=== PATIENT | male | born 1960 | race Caucasian/White ===

== ENCOUNTER 2021-09-20 19:32 | Emergency (ER) | payer MEDICAID ==
[~2021-09-20] VITALS: Ht 165.1 cm; Wt 80.0 kg
[~2021-09-20 19:32] MED LIST: CEPH-571 PO; NO HOME MEDS
[2021-09-20 19:47] VITALS: BP 106/67
[2021-09-20] MEDS ORDERED: morphine 4 MG/ML inj SYRINge IV ONE (20:00)
[2021-09-20] MEDS ORDERED: ondansetron/PF 4mg/2ml inj IV ONE (20:00)
[2021-09-20] MEDS ORDERED: ketorolac trometh. 30mg/ml inj. IV ONE (20:45)
[2021-09-20] MEDS ORDERED: HYDR-3965 PO (20:51)
== END 2021-09-20 21:06 | disposition home or self-care (01) ==
LOC: ER 19:33
DX: S00.81XA Abrasion of other part of head, initial encounter (principal); M25.521 Pain in right elbow; Z79.2 Long term (current) use of antibiotics; W19.XXXA Unspecified fall, initial encounter; Y93.89 Activity, other specified; Y92.89 Other specified places as the place of occurrence of the external cause; Y99.8 Other external cause status
CPT/HCPCS: 70450; 72125; 73070; 96374; 96375; 99285; J1885; J2270; J2405

== ENCOUNTER 2025-05-14 21:26 | Emergency (ER) | payer MEDICAID ==
[~2025-05-14] VITALS: Ht 162.6 cm; Wt 67.5 kg
[2025-05-14 21:38] VITALS: BP 136/94; PULSE 85; RESP 17; TEMP 97.8; O2SAT 96
[2025-05-14] MEDS ORDERED: OFLO5DRO5 LEFT EAR (21:54)
--- NOTE | 2025-05-14 21:55 | Physician Documentation ---
History of Present Illness ~ Chief Complaint: Ear Pain Stated Complaint: L EAR PAIN Time Seen by MD: 21:51 Source: patient Mode of Arrival: POV Exam Limitations: no limitations HPI 65-year-old male with complaints of left ear pain x2 days no fevers. Medication Reconciliation Allergies: Coded Allergies: No Known Allergies (Unverified , 10/28/12) Scheduled Cephalexin (Keflex), 1 CAP PO QID Miscellaneous Medications Home Med List (No Home Medications), (Reported) Past Medical History Past Medical History: No Pertinent History Alcohol Use: None Review of Systems All Other Systems at this time: Reviewed and Negative ENT: Reports: see HPI Physical Exam Vital Signs: RN Vital Signs have been reviewed: Yes, Temperature: 97.8, Source: Temporal, Heart Rate: 85, Respiratory Rate: 17, BP: 136/94, Pulse Oximetry: 96, Weight: 67.500 Oxygen Flow Rate: 0 General Appearance: alert, WD/WN, no apparent distress Ear: TM red, discharge, swelling, tenderness Ear Left ear Progress Results/Orders Results/Orders Vital Signs 05/14/25 21:38 Temp 97.8 Pulse 85 Resp 17 B/P (MAP) 136/94 Pulse Ox 96 O2 Flow Rate 0 Medical Decision Making Findings Left ear canal with erythema swelling and some discharge right ear unremarkable ear drops prescribed Departure Time of Disposition: 21:53 Disposition: 01 HOME / SELF CARE / HOMELESS Impression: Primary Impression: Otitis externa Condition: Stable Discharge Instructions: Earache, Adult Additional Instructions: Ear drops as prescribed follow up with the primary care as needed Referrals: NO PRIMARY CARE PROVIDER (PCP) Prescriptions Ofloxacin (Ofloxacin) 0.3 % Drops 5 DROP LEFT EAR Q12H, #10 ML 0 Refills Prov: JAYE SHANKAR NP 05/14/25 Education Educated: Patient, Family Educated regarding: diagnosis, treatment, need for follow up Signature Scribe Signature: No scribe Attestation: The note accurately reflects work and decisions made by me.Jaye Shankar - PESTIC[employer] APPLICATOR 05/14/25 21:55 JAYE SHANKAR NP May 14, 2025 21:55
== END 2025-05-14 22:03 | disposition home or self-care (01) ==
LOC: ER 21:27
DX: H60.92 Unspecified otitis externa, left ear (principal)
CPT/HCPCS: 99283